=== PATIENT | male | born 1990 | race Caucasian/White ===

== ENCOUNTER 2024-12-07 19:33 | Emergency (ER) | payer MEDICARE, OTHER ==
[~2024-12-07] VITALS: Ht 154.9 cm; Wt 67.6 kg
[2024-12-07 19:36] VITALS: BP 127/96
[2024-12-07] MEDS ORDERED: QUET50TA PO (19:40)
[2024-12-07 20:20] LABS: PLATELET COUNT (AUTO) 180 K/uL (152-348); RED BLOOD CELL COUNT(AUTO) 5.37 MIL/uL (4.06-5.63); RED CELL DISTRIBUTION WIDTH 15.4 % (12.1-16.2); WHITE BLOOD COUNT (AUTO) 6.5 K/uL (3.6-10.2)
[2024-12-07] MEDS ORDERED: LORAZEPAM 2 MG/1 ML VIAL ONE (20:25)
[2024-12-07 20:40] LABS: ASPARTATE AMINOTRANSFERASE 17 U/L (15-37); CREATININE 1.2 mg/dL (0.6-1.3); SODIUM SERUM 144 mmol/L (136-145); TOTAL PROTEIN, SERUM 5.3 g/dL (6.4-8.2); UREA NITROGEN, BLOOD 12 mg/dL (7-18)
[2024-12-07] MEDS: LORAZEPAM 2 MG/1 ML VIAL IV ONE (20:45)
[2024-12-07] MEDS: IV NORMAL SALINE 1000 ML BAG IV ONE (20:46)
[2024-12-07 23:02] VITALS: BP 114/76; TEMP 208.4; O2SAT 96
== END 2024-12-07 23:03 | disposition home or self-care (01) ==
LOC: ER 19:35
DX: R07.9 Chest pain, unspecified (principal); F12.90 Cannabis use, unspecified, uncomplicated; F17.210 Nicotine dependence, cigarettes, uncomplicated; F41.9 Anxiety disorder, unspecified; R06.02 Shortness of breath
CPT/HCPCS: 99285; 96374; 96361; 71045; 99406; 80076; 80048; 83880; 85025; 85379; 84484 ×2; 36415; 93005; J2060; J7040; A4606; A4663